=== PATIENT | female | born 1995 | race African-American/Black ===

== ENCOUNTER 2017-04-16 11:57 | Emergency (ER) | payer MEDICAID ==
[2017-04-16 12:05] VITALS: BP 116/74
--- NOTE | 2017-04-16 12:57 | ER Document Report ---
ED General - General Chief Complaint: Vaginal Bleeding Stated Complaint: VAGINAL BLEEDING,ABDOMINAL PAIN Time Seen by Provider: 04/16/17 12:55 Mode of Arrival: Ambulatory Information source: Patient Notes: 21-year-old female who used to be on control presents with complaints of intermittent vaginal bleeding 3 periods i nthe past month . pt denies any fevers or chills nausea or vomtiing. sHe notes intermittent crampy TRAVEL OUTSIDE OF THE [place] IN LAST 30 DAYS: No - HPI Onset: Other Onset/Duration: Intermittent Quality of pain: Cramping Severity: Mild Pain Level: 1 Associated symptoms: Other Exacerbated by: Denies Relieved by: Denies Similar symptoms previously: No Recently seen / treated by doctor: No - Related Data Allergies/Adverse Reactions: No Known Allergies Allergy (Verified 04/16/17 12:02) Past Medical History - Social History Smoking Status: Never Smoker Cigarette use (# per day): No Chew tobacco use (# tins/day): No Smoking Education Provided: No Frequency of alcohol use: None Drug Abuse: None Family History: Reviewed & Not Pertinent Patient has suicidal ideation: No Patient has homicidal ideation: No Renal/ Medical History: Denies: Hx Peritoneal Dialysis Surgical Hx: Negative Review of Systems - Review of Systems Notes: REVIEW OF SYSTEMS: CONSTITUTIONAL : Denies fever, chills, or sweats. Denies recent illness. EENT: Denies eye, ear, throat, or mouth pain or symptoms. Denies nasal or sinus congestion or discharge. Denies throat, tongue, or mouth swelling or difficulty swallowing. CARDIOVASCULAR: Denies chest pain. Denies palpitations or racing or irregular heart beat. Denies ankle edema. RESPIRATORY: Denies cough, cold, or chest congestion. Denies shortness of breath, difficulty breathing, or wheezing. GASTROINTESTINAL: Denies abdominal pain or distention. Denies nausea, vomiting , or diarrhea. Denies blood in vomitus, stools, or per rectum. Denies black, tarry stools. Denies constipation. GENITOURINARY: Denies difficulty urinating, painful urination, burning, frequency, blood in urine, or discharge. FEMALE GENITOURINARY: Admits to vaginal bleeding cramping MUSCULOSKELETAL: Denies back or neck pain or stiffness. Denies joint pain or swelling. SKIN: Denies rash, lesions or sores. HEMATOLOGIC : Denies easy bruising or bleeding. LYMPHATIC: Denies swollen, enlarged glands. NEUROLOGICAL: Denies confusion or altered mental status. Denies passing out or loss of consciousness. Denies dizziness or lightheadedness. Denies headache. Denies weakness or paralysis or loss of use of either side. Denies problems with gait or speech. Denies sensory loss, numbness, or tingling. Denies seizures. PSYCHIATRIC: Denies anxiety or stress. Denies depression, suicidal ideation, or homicidal ideation. ALL OTHER SYSTEMS REVIEWED AND NEGATIVE. Dictation was performed using [employer] voice recognition software PHYSICAL EXAMINATION: GENERAL: Well-appearing, well-nourished and in no acute distress. HEAD: Atraumatic, normocephalic. EYES: Pupils equal round and reactive to light, extraocular movements intact, conjunctiva are normal. ENT: Nares patent, oropharynx clear without exudates. Moist mucous membranes. NECK: Normal range of motion, supple without lymphadenopathy LUNGS: Breath sounds clear to auscultation bilaterally and equal. No wheezes rales or rhonchi. HEART: Regular rate and rhythm without murmurs ABDOMEN: Soft, nontender, nondistended abdomen. No guarding, no rebound. No masses appreciated. Female : deferred Musculoskeletal: Normal range of motion, no pitting or edema. No cyanosis. NEUROLOGICAL: Cranial nerves grossly intact. Normal speech, normal gait. Normal sensory, motor exams PSYCH: Normal mood, normal affect. SKIN: Warm, Dry, normal turgor, no rashes or lesions noted. Physical Exam - Vital signs Vitals: Temp Pulse Resp BP Pulse Ox 98.0 F 102 H 16 116/74 89 L 04/16/17 12:03 04/16/17 12:03 04/16/17 12:03 04/16/17 12:03 04/16/17 12:03 Course - Re-evaluation Re-evalutation: 04/16/17 13:06 Lab work is pending, patient has probable irregular menses secondary to hormonal imbalance. I have offered control pills, patient is willing to try this, risks and benefits have been explained to her 04/16/17 15:02 Patient wishes to have an injection of control, I will therefore give her follow-up with [facility]. Otherwise lab work looks normal no acute distress will DC at this time Patient is very happy with this plan After performing a Medical Screening Examination, I estimate there is LOW risk for ACUTE APPENDICITIS, BOWEL OBSTRUCTION, ACUTE CHOLECYSTITIS, PERFORATED DIVERTICULITIS, INCARCERATED HERNIA, PANCREATITIS, PELVIC INFLAMMATORY DISEASE, PERFORATED ULCER, ECTOPIC , or TUBO-OVARIAN ABSCESS, thus I consider the discharge disposition reasonable. Also, there is no evidence or peritonitis , sepsis, or toxicity. I have reevaluated this patient multiple times and no significant life threatening changes are noted. The patient and I have discussed the diagnosis and risks, and we agree with discharging home with close follow-up with the understanding that symptoms and presentations can change. We also discussed returning to the Emergency Department immediately if new or worsening symptoms occur. We have discussed the symptoms which are most concerning (e.g., bloody stool, fever, changing or worsening pain, vomiting) that necessitate immediate return. - Vital Signs Vital signs: Temp Pulse Resp BP Pulse Ox 98.0 F 102 H 18 116/74 97 04/16/17 12:03 04/16/17 12:03 04/16/17 12:59 04/16/17 12:03 04/16/17 12:59 - Laboratory Result Diagrams: 04/16/17 13:30 04/16/17 13:30 Discharge - Discharge Clinical Impression: Vaginal bleeding Condition: Stable Disposition: HOME, SELF-CARE Instructions: Vaginal Bleeding ([facility]) Referrals: [facility] [Provider Group] - Follow up tomorrow
[2017-04-16 13:45] LABS: ABSOLUTE EOSINOPHILS # (AUTO) 0.1 10^3/uL (0.0-0.6); ABSOLUTE LYMPHOCYTES (AUTO) 1.9 10^3/uL (0.5-4.7); ABSOLUTE MONOCYTES (AUTO) 0.3 10^3/uL (0.1-1.4); BASOPHILS % (AUTO) 0.2 % (0-2); EOSINOPHILS % (AUTO) 1.3 % (0-6); HEMATOCRIT 40.4 % (36.0-47.0); HGB HCT DIFFERENCE -1.4; LYMPHOCYTES % (AUTO) 44.5 % (13-45); MEAN CORPUSCULAR HEMOGLOBIN 28.7 pg (27.0-33.4); MEAN CORPUSCULAR HGB CONC 32.1 g/dL (32.0-36.0); MEAN CORPUSCULAR VOLUME 89 fl (80-97); MONOCYTES % (AUTO) 7.5 % (3-13); RED BLOOD COUNT 4.53 10^6/uL (3.72-5.28); RED CELL DISTRIBUTION WIDTH 12.9 % (11.5-14.0); SEGMENTED NEUTROPHILS % (AUTO) 46.5 % (42-78); WHITE BLOOD COUNT 4.3 10^3/uL (4.0-10.5)
[2017-04-16 14:11] LABS: ALANINE AMINOTRANSFERASE 25 U/L (9-52); ALBUMIN 4.3 g/dL (3.5-5.0); ALKALINE PHOSPHATASE 53 U/L (38-126); ANION GAP 13 (5-19); ASPARTATE AMINO TRANSFERASE 29 U/L (14-36); BILIRUBIN,DIRECT 0.2 mg/dL (0.0-0.4); BLOOD UREA NITROGEN 12 mg/dL (7-20); CALCIUM 9.5 mg/dL (8.4-10.2); CARBON DIOXIDE 26 mmol/L (22-30); CHLORIDE 104 mmol/L (98-107); GLUCOSE 80 mg/dL (75-110); POTASSIUM 4.1 mmol/L (3.6-5.0); SODIUM 142.8 mmol/L (137-145); TOTAL PROTEIN 7.6 g/dL (6.3-8.2)
== END 2017-04-16 15:05 | disposition home or self-care (01) ==
LOC: ER 11:57
DX: N93.8 Other specified abnormal uterine and vaginal bleeding (principal); R10.9 Unspecified abdominal pain
CPT/HCPCS: 36415; 80053; 84702; 85025; 99284

== ENCOUNTER 2019-08-09 14:12 | Outpatient (CLI) | payer OTHER, MEDICAID ==
[2019-08-09 15:27] LABS: APPEARANCE,URINE CLOUDY; BILIRUBIN,URINE NEGATIVE (NEGATIVE); CALCIUM OXALATE CRYSTALS,URINE FEW /HPF; COLOR,URINE YELLOW; GLUCOSE, URINE NEGATIVE (NEGATIVE); KETONES,URINE NEGATIVE (NEGATIVE); LEUKOCYTE ESTERASE,URINE SMALL (NEGATIVE); NITRITE,URINE NEGATIVE (NEGATIVE); PROTEIN,URINE NEGATIVE (NEGATIVE); URINE SPECIFIC GRAVITY 1.019
[2019-08-09 15:42] LABS: URINE AMPHETAMINES SCREEN NEGATIVE; URINE BARBITURATES SCREEN NEGATIVE; URINE BENZODIAZEPINES SCREEN NEGATIVE; URINE COCAINE SCREEN NEGATIVE; URINE METHADONE SCREEN NEGATIVE; URINE PHENCYCLIDINE SCREEN NEGATIVE
[2019-08-09 15:53] LABS: URINE MARIJUANA (THC) SCREEN UNCONFIRMED POSITIVE
== END 2019-08-09 15:46 | disposition home or self-care (01) ==
LOC: LC 14:12
PROVIDERS: ATTEND Obstetrics & Gynecology
PROC: 4A1HXCZ Monitoring of Products of Conception, Cardiac Rate, External Approach (ICD-10-PCS; principal; 2019-08-09)
DX: O26.892 Other specified pregnancy related conditions, second trimester (principal); R10.9 Unspecified abdominal pain; Z3A.22 22 weeks gestation of pregnancy
CPT/HCPCS: 81001; 80307; 59899; G0480 ×2; 80349

== ENCOUNTER 2019-12-21 06:12 | Inpatient (IN) | payer MEDICAID ==
[2019-12-21] MEDS ORDERED: MISOPROSTOL 0.2 MG TABLET ONE (06:16)
[2019-12-21] MEDS ORDERED: LIDOCAINE 1% INJ-PF (10 MG/ML) 30 ML SDV ONE (06:16)
[2019-12-21] MEDS ORDERED: OXYTOCIN 10 UNIT/ML VIAL ONE (06:16)
[2019-12-21] MEDS ORDERED: OXYTOCIN/NORMAL SALINE 20 UNIT/1,000 ML RTUINJ ONE (06:16)
[2019-12-21] MEDS ORDERED: RINGERS SOLUTION,LACTATED 300 ML IV ONE (06:29)
[2019-12-21] MEDS ORDERED: RINGERS SOLUTION,LACTATED 1,000 ML IV PRN (06:29)
[2019-12-21] MEDS ORDERED: OXYTOCIN/NORMAL SALINE 20 UNIT/1,000 ML RTUINJ IV PRN ×2 (06:29→18:03)
[2019-12-21 06:53] LABS: APPEARANCE,URINE SLIGHTLY-CLOUDY; BILIRUBIN,URINE NEGATIVE (NEGATIVE); COLOR,URINE YELLOW; GLUCOSE, URINE NEGATIVE (NEGATIVE); KETONES,URINE NEGATIVE (NEGATIVE); LEUKOCYTE ESTERASE,URINE TRACE (NEGATIVE); NITRITE,URINE NEGATIVE (NEGATIVE); PROTEIN,URINE NEGATIVE (NEGATIVE); UROBILINOGEN,URINE NEGATIVE mg/dL (<2.0)
[2019-12-21 07:11] LABS: URINE AMPHETAMINES SCREEN NEGATIVE; URINE BARBITURATES SCREEN NEGATIVE; URINE BENZODIAZEPINES SCREEN NEGATIVE; URINE COCAINE SCREEN NEGATIVE; URINE METHADONE SCREEN NEGATIVE; URINE PHENCYCLIDINE SCREEN NEGATIVE
[2019-12-21 07:13] LABS: URINE MARIJUANA (THC) SCREEN UNCONFIRMED POSITIVE
[2019-12-21 07:44] LABS: ABSOLUTE EOSINOPHILS # (AUTO) 0.1 10^3/uL (0.0-0.6); ABSOLUTE MONOCYTES (AUTO) 0.7 10^3/uL (0.1-1.4); ABSOLUTE NEUT (AUTO) 4.1 10^3/uL (1.7-8.2); BASOPHILS % (AUTO) 0.3 % (0-2); EOSINOPHILS % (AUTO) 0.9 % (0-6); HEMATOCRIT 30.1 % (36.0-47.0); HEMOGLOBIN 10.4 g/dL (12.0-15.5); LYMPHOCYTES % (AUTO) 29.6 % (13-45); MEAN CORPUSCULAR HEMOGLOBIN 31.6 pg (27.0-33.4); MEAN CORPUSCULAR HGB CONC 34.7 g/dL (32.0-36.0); MEAN CORPUSCULAR VOLUME 91 fl (80-97); MONOCYTES % (AUTO) 10.6 % (3-13); PLATELET COUNT 270 10^3/uL (150-450); SEGMENTED NEUTROPHILS % (AUTO) 58.6 % (42-78); TOTAL CELLS COUNTED % (AUTO) 100 %; WHITE BLOOD COUNT 6.9 10^3/uL (4.0-10.5)
--- NOTE | 2019-12-21 08:46 | Admission Physical ---
Datetime Report Generated by CPN: 12/21/2019 08:45 CURRENT ADMISSION Chief Complaint: Scheduled Induction of Labor Indication for Induction: Post Dates Admit Impression : Term, Intrauterine ; No Active Labor Admit Plan: Admit to Unit; Initiate Labor Induction Protocol ALLERGIES Medication Allergies: No Medication Allergies: No Known Allergies (12/21/2019) Latex: No Latex Allergies OBSTETRICAL HISTORY EDC: 12/14/2019 00:00 : 3 Para: 2 Term: 2 : 0 SAB: 0 IAB: 0 Ectopic: 0 Livin Cesareans: 0 VBACs: 0 Multiple Births: 0 Gestational Diabetes: No Rh Sensitization: No Incompetent Cervix: No PATI: No Infertility: No ART Treatment: No Uterine Anomaly: No IUGR: No Hx Previous C/S: No Macrosomia: No Hx Loss/Stillborn: No PIH: No Hx : No Placenta Previa/Abruption: No Depression/PP Depression: No PTL/PROM: No Post Hemorrhage: No Current Procedures: Ultrasound Obstetrical History Comments: G1- Girl 40 wks G2- Girl 40 wks G3-Current SEE RECORDS Alcohol: No Marijuana : No Cocaine: No Other Illicit Drugs: No Cigarettes: Former Smoker. [id number] MEDICAL HISTORY Diabetes: No Blood Transfusion: No Pulmonary Disease (Asthma, TB): No Breast Disease: No Hypertension: No Manager Global Surgery: No Heart Disease: No Hosp/Surgery: Yes Autoimmune Disorder: No Anesthetic Complications: No Kidney Disease: No Abnormal Pap Smear: Yes Neuro/Epilepsy: No Psychiatric Disorders: No Other Medical Diseases: No Hepatitis/Liver Disease: No Significant Family History: No Varicosities/Phlebitis: No Trauma/Violence : No Thyroid Dysfunction: No Medical History Comments: Childbirth; Hx Gonorrhea and chlamydia INFECTIOUS HISTORY Gonorrhea: Yes Genital Herpes: No Chlamydia: Yes Tuberculosis: No Syphilis: No Hepatitis: No HIV/AIDS Exposure: No Rash or Viral Illness: No HPV: No PHYSICAL EXAM General: Normal HEENT: Normal Neurologic: Normal Thyroid: Deferred Heart: Normal Lungs: Normal Breast: Deferred Back: Normal Abdomen: Normal Genitourinary Exam: Normal Extremities: Normal DTRs: Deferred Pelvic Type: Adequate Physical Exam Comments: pelvis proen to 8# Vital Signs: Reviewed VAGINAL EXAM Dilatation: 1 Effacement: th Station: -3 Contraction Comments: q2-4 mins MEMBRANES Pooling: Negative Membranes: Intact FETUS A EGA: 41.0 Monitoring: External US FHR- Baseline: 135 Variability: Moderate 6-25bpm Accelerations: 15X15 Decelerations: None Estimated Weight (gm): 3800 Admit Comment: admitted for IOL for 41 weeks IUP. denies medical problems. Pitocin infusing. P:cont pitocin IOL, anticipate . PLANS FOR LABOR AND DELIVERY Labor and Delivery: None Pain Management: Epidural Feeding Preference: Both Benefit of Breast Feed Discussed: Yes Circumcision: N/A INFORMED CONSENT Assignment: Xiomara Santos MD Signature: with User ID: [email or web address] : with User ID: [email or web address]
[2019-12-21] MEDS ORDERED: EPHEDRINE SULFATE INJ 50 MG/1 ML AMPULE ONE (13:31)
[2019-12-21] MEDS ORDERED: BUPIVACAINE HCL 0.25 % INJ/PF (2.5 MG/1 ML) 30 ML VIAL ONE (13:32)
[2019-12-21] MEDS ORDERED: FENTANYL/BUPIVACAINE/NS/PF 300 MCG/150 ML RTUINJ EPI ONE (13:32)
[2019-12-21] MEDS ORDERED: PSEUDOEPHEDRINE HCL 30 MG TABLET PO PRN (18:03)
[2019-12-21] MEDS ORDERED: PROMETHAZINE HCL 25 MG TABLET PO PRN (18:03)
[2019-12-21] MEDS ORDERED: DIPHENHYDRAMINE HCL 25 MG CAPSULE PO PRN (18:03)
[2019-12-21] MEDS ORDERED: PROMETHAZINE HCL INJ 25 MG/1 ML VIAL IV PRN (18:03)
[2019-12-21] MEDS ORDERED: MEASLES,MUMPS&RUBELLA VACC/PF 0.5 ML VIAL SUBCUT PRN (18:03)
[2019-12-21] MEDS ORDERED: BENZOCAINE/MENTHOL AEROSOL SPRAY 56 ML TOP PRN (18:03)
[2019-12-21] MEDS ORDERED: DIPH/PERTUSS(ACELL)/TETANUS VAC/PF 0.5 ML SYR (>=10YO) IM PRN (18:03)
[2019-12-21] MEDS ORDERED: NA PHOS,M-B/NA PHOS,DI-BA (ADULT) 133 ML ENEMA PR PRN (18:03)
[2019-12-21] MEDS ORDERED: ACETAMINOPHEN WITH CODEINE #3 TABLET PO PRN ×2 (18:03)
[2019-12-21] MEDS ORDERED: ZOLPIDEM TARTRATE 5 MG TABLET PO PRN (18:03)
[2019-12-21] MEDS ORDERED: ACETAMINOPHEN 650 MG SUPP.RECT PR PRN (18:03)
[2019-12-21] MEDS ORDERED: PROMETHAZINE HCL 25 MG SUPP.RECT PR PRN (18:03)
[2019-12-21] MEDS ORDERED: DIBUCAINE 1% OINTMENT 28 GM TP PRN (18:03)
[2019-12-21] MEDS ORDERED: MAGNESIUM HYDROXIDE SUSP 30 ML UDCUP PO PRN (18:03)
[2019-12-21] MEDS ORDERED: GLYCERIN/WITCH HAZEL LEAF 1 EACH MED..WIPE TP PRN (18:03)
--- NOTE | 2019-12-21 19:49 | Delivery Summary ---
Del Sum A-C Datetime Report Generated by CPN: 12/21/2019 19:49 DELIVERY PERSONNEL DELIVERY PERSONNEL: [id number] Delivery Doctor:: Xiomara Santos MD Labor and Delivery Nurse:: Melissa Zimmer RNmotorcycle tester Nurse:: Shanice Gomez RN Scratcher/APPLIANCE REPAIRER: Carly Marsh, ST Scratcher/APPLIANCE REPAIRER: Jagruti Franco [place], TRIMMING MACHINE SET UP OPERATOR MATERNAL INFORMATION Delivery Anesthesia: Epidural Medications After Delivery: Pitocin Bolus-Please Comment; Pitocin Drip 20 Units/1000ml NSS Meds After Delivery Comment: Pitocin 20 units/1000ml Estimated Blood Loss (ml): 150 Delivery QBL Comment: QBL unable to be obtained d/t delivery in bed. Maternal Complications: None Provider Comments: Called to patients room as she was complete and +3 with urge to push. when I entered room. She pushed once and delivered over an intact perineum: female infant. Infant vigorously crying. Cord clamping delayed 30 seconds. After cord doubly clamped and cut, infant placed skin to skin with Mother. Both Mother and infant stable. LABOR SUMMARY EDC: 12/14/2019 00:00 No. Babies in Womb: 1 Attempted: No Labor Anesthesia: Epidural LABOR INFORMATION Reason for Induction: Post Dates Onset of Labor: 12/21/2019 13:20 Complete Dilatation: 12/21/2019 17:51 Cervical Ripening Agents: Lieberman Balloon Oxytocin: Induction Group B Beta Strep: negative Antibiotics # of Doses: 0 Antibiotics Time of Last Dose: n/a Name of Antibiotic Given: n/a Steroids Given: None Reason Steroids Not Administered: Not Applicable Other Reason Not Administered: n/a MEMBRANES Membranes Rupture Method: Artificial Rupture of Membranes: 12/21/2019 13:20 Length of Rupture (hr): 4.57 Amniotic Fluid Color: Clear Amniotic Fluid Amount: Moderate Amniotic Fluid Odor: Normal STAGES OF LABOR Stage 1 hr: 4 Stage 1 min: 31 Stage 2 hr: 0 Stage 2 min: 3 Stage 3 hr: 0 Stage 3 min: 4 Total Time in Labor hr: 4 Total Time in Labor min: 38 VAGINAL DELIVERY Episiotomy: None Laceration #1: None Laceration Extension #1: N/A Laceration Repair: Not Applicable Sponge Count Correct: No Sharps Count Correct: N/A CSECTION DELIVERY Primary Indication: N/A Secondary Indication: N/A CSection Incidence: N/A Labor: N/A Elective: N/A CSection Incision: N/A BABY A INFORMATION Infant Delivery Date/Time: 12/21/2019 17:54 Method of Delivery: Vaginal Nurse Controlled Delivery: No Born in Route : No : N/A Forceps: N/A Vacuum Extraction: N/A Shoulder Dystocia : No PRESENTATION/POSITION BABY A Presentation: Cephalic Cephalic Presentation: Vertex Vertex Position: Left Occipital Anterior Breech Presentation: N/A PLACENTA INFORMATION BABY A Placenta Delivery Time : 12/21/2019 17:58 Placenta Method of Delivery: Spontaneous Placenta Status: Delivered SCORES BABY A Heart Rate 1 min: >100 bpm Resp Effort 1 min: Good Cry Reflex Irritability 1 min: Cough or Sneeze or Pulls Away Muscle Tone 1 min: Active Motion Color 1 min: Body [place], Extremities Blue Resuscitation Effort 1 min: Tactile Stimulation SCORE 1 MIN: 9 Heart Rate 5 min: >100 bpm Resp Effort 5 min: Good Cry Reflex Irritability 5 min: Cough or Sneeze or Pulls Away Muscle Tone 5 min: Active Motion Color 5 min: Body [place], Extremities Blue Resuscitation Effort 5 min: Tactile Stimulation SCORE 5 MIN: 9 INFANT INFORMATION BABY A Gestational Age at Delivery: 41.0 Gestational Status: Late Term- 41- 41.6 Weeks Infant Outcome : Liveborn Infant Condition : Stable Sex: Female IDENTIFICATION BABY A Infant Verification Date/Time: 12/21/2019 18:30 ID Band Number: [id number] Mother's Name Verified: Yes Infant RN Verifying Infant: C. Bactat, RN WEIGHT/LENGTH BABY A Infant Birthweight (gm): 3358 Weight (lb): 7 Weight (oz): 6 Infant Length (in): 19.75 Infant Length (cm): 50.17 CORD INFORMATION BABY A No. Cord Vessels: 3 Nuchal Cord : N/A Cord Blood Taken: Yes-For Storage (Mom's Blood type +) Suction: Mouth ASSESSMENT BABY A Complications: None Physical Findings at Delivery: Within Normal Limits Infant Respirations: Appears Normal Skin to Skin: Yes Skin to Skin Time (min): 40 Consulting Solution Manager/ALS Called : No Care By: Shyla Gomez, RN Transferred To: Remains with Mother BABY B INFORMATION : N/A SIGNATURES Signature: with User ID: [email or web address] : with User ID: [email or web address] : I was personally available for consultation and serving as supervising physician for the MLP.
[2019-12-21] MEDS ORDERED: IBUPROFEN 800 MG TABLET ONE (20:25)
[2019-12-21] MEDS: IBUPROFEN 800 MG TABLET PO SCH ×2 (20:27→22:36)
[2019-12-21] MEDS: FAMOTIDINE 20 MG TABLET PO SCH (21:47)
[2019-12-22] MEDS: IBUPROFEN 800 MG TABLET PO SCH ×3 (05:33→22:51)
[2019-12-22 07:56] LABS: HEMATOCRIT 29.3 % (36.0-47.0); HEMOGLOBIN 10.1 g/dL (12.0-15.5); MEAN CORPUSCULAR HEMOGLOBIN 31.6 pg (27.0-33.4); MEAN CORPUSCULAR HGB CONC 34.6 g/dL (32.0-36.0); MEAN CORPUSCULAR VOLUME 91 fl (80-97); PLATELET COUNT 257 10^3/uL (150-450); RED CELL DISTRIBUTION WIDTH 14.3 % (11.5-14.0)
[2019-12-22 07:59] LABS: WHITE BLOOD COUNT 16.1 10^3/uL (4.0-10.5)
--- NOTE | 2019-12-22 09:23 | PDOC PROGRESS REPORT ---
Subjective-OB Progress Note for:: 12/22/19 Subjective: Doing well, no c/o, voiding, scant bleeding, breast and bottle Physical Exam (OB) Vital Signs: Temp Pulse Resp BP Pulse Ox 98.5 F 71 16 102/54 L 100 12/22/19 07:51 12/22/19 07:51 12/22/19 07:51 12/22/19 07:51 12/22/19 07:51 Intake & Output 12/21/19 12/22/19 12/23/19 06:59 06:59 06:59 Intake Total 120 500 Balance 120 500 Weight 180.5 kg 67.8 kg - PIH/Pre-Eclampsia Clonus: Negative Headache: Absent Epigastric Pain: No Visual Changes: No - Lochia Lochia Amount: Scant < 10 ml Lochia Color: Rubra/Red - Abdomen Description: Tender, Soft Hernia Present: No Fundal Description: Firm, Midline Describe if Not Midline: Fundal massage x1-2 minutes and fundus now firm Fundal Height: u/u - u/2 Objective-Diagnostic Laboratory: 12/22/19 07:31 12/22/19 07:31 WBC 16.1 H D RBC 3.20 L Hgb 10.1 L Hct 29.3 L MCV 91 MCH 31.6 MCHC 34.6 RDW 14.3 H Plt Count 257 Assessment and Plan(PN) - Assessment and Plan (1) Vaginal delivery Is this a current diagnosis for this admission?: Yes - Time Spent with Patient Time with patient: Less than 15 minutes Medications reviewed and adjusted accordingly: Yes - Disposition Anticipated Discharge: Home Within: within 24 hours
[2019-12-22] MEDS: SENNOSIDES/DOCUSATE 8.6-50 MG 1 EACH TABLET PO SCH (09:47)
[2019-12-22] MEDS: DOCUSATE SODIUM 100 MG CAPSULE PO SCH ×2 (09:47→17:55)
[2019-12-22] MEDS: FERROUS SULFATE 325 MG TABLET PO SCH ×2 (09:47→17:55)
[2019-12-22] MEDS: FAMOTIDINE 20 MG TABLET PO SCH ×2 (09:47→22:59)
[2019-12-22] MEDS: PRENATAL VITAMIN W DHA CAPSULE PO SCH (09:47)
[2019-12-23] MEDS: IBUPROFEN 800 MG TABLET PO SCH ×2 (05:34→14:21)
[2019-12-23 08:15] VITALS: BP 110/74
[2019-12-23] MEDS: FAMOTIDINE 20 MG TABLET PO SCH (09:28)
[2019-12-23] MEDS: DOCUSATE SODIUM 100 MG CAPSULE PO SCH (09:28)
[2019-12-23] MEDS: SENNOSIDES/DOCUSATE 8.6-50 MG 1 EACH TABLET PO SCH (09:28)
[2019-12-23] MEDS: FERROUS SULFATE 325 MG TABLET PO SCH (09:29)
[2019-12-23] MEDS: PRENATAL VITAMIN W DHA CAPSULE PO SCH (09:29)
--- NOTE | 2019-12-23 11:22 | PDOC DISCHARGE SUMMARY ---
Impression - Admit/DC Date/PCP Admission Date/Primary Care Provider: 12/21/19 06:12 KEYUR CAMPBELL MD Discharge Date: 12/23/19 - PP Day #2, doing well, no complaints, B+ Rubella Immune, - Discharge Diagnosis (1) Normal course Is this a current diagnosis for this admission?: Yes (2) Tetrahydrocannabinol (THC) dependence Is this a current diagnosis for this admission?: Yes (3) Vaginal delivery Is this a current diagnosis for this admission?: Yes - Additional Information Resuscitation Status: Full Code Discharge Diet: As Tolerated, Regular Discharge Activity: Activity As Tolerated, No Lifting Over 10 Pounds, Pelvic Rest Referrals: [facility] [Provider Group] Prescriptions: Ibuprofen [Motrin 800 mg Tablet] 800 mg PO Q8 PRN #60 tablet PRN Reason: Pain Scale Of 3 Home Medications: Vit/Iron Fum/Folic AC [ Tablet] 1 tab PO DAILY 03/04/16 Ibuprofen [Motrin 800 mg Tablet] 800 mg PO Q8 PRN #60 tablet 12/23/19 HPI Reason(s) for Admission: Onset of Labor Procedures: Ultrasound Intrapartum Procedure(s): Spontaneous Vaginal Delivery Results Laboratory Results: WBC 16.1 10^3/uL (4.0-10.5) H D 12/22/19 07:31 RBC 3.20 10^6/uL (3.72-5.28) L 12/22/19 07:31 Hgb 10.1 g/dL (12.0-15.5) L 12/22/19 07:31 Hct 29.3 % (36.0-47.0) L 12/22/19 07:31 MCV 91 fl (80-97) 12/22/19 07:31 MCH 31.6 pg (27.0-33.4) 12/22/19 07:31 MCHC 34.6 g/dL (32.0-36.0) 12/22/19 07:31 RDW 14.3 % (11.5-14.0) H 12/22/19 07:31 Plt Count 257 10^3/uL (150-450) 12/22/19 07:31 Lymph % (Auto) 29.6 % (13-45) 12/21/19 07:10 Luna % (Auto) 10.6 % (3-13) 12/21/19 07:10 Eos % (Auto) 0.9 % (0-6) 12/21/19 07:10 Baso % (Auto) 0.3 % (0-2) 12/21/19 07:10 Absolute Neuts (auto) 4.1 10^3/uL (1.7-8.2) 12/21/19 07:10 Absolute Lymphs (auto) 2.0 10^3/uL (0.5-4.7) 12/21/19 07:10 Absolute Monos (auto) 0.7 10^3/uL (0.1-1.4) 12/21/19 07:10 Absolute Eos (auto) 0.1 10^3/uL (0.0-0.6) 12/21/19 07:10 Absolute Basos (auto) 0.0 10^3/uL (0.0-0.2) 12/21/19 07:10 Seg Neutrophils % 58.6 % (42-78) 12/21/19 07:10 Urine Color YELLOW 12/21/19 06:25 Urine Appearance SLIGHTLY-CLOUDY 12/21/19 06:25 Urine pH 7.0 (5.0-9.0) 12/21/19 06:25 Ur Specific [place] 1.010 12/21/19 06:25 Urine Protein NEGATIVE mg/dL (NEGATIVE) 12/21/19 06:25 Urine Glucose (UA) NEGATIVE mg/dL (NEGATIVE) 12/21/19 06:25 Urine Ketones NEGATIVE mg/dL (NEGATIVE) 12/21/19 06:25 Urine Blood NEGATIVE (NEGATIVE) 12/21/19 06:25 Urine Nitrite NEGATIVE (NEGATIVE) 12/21/19 06:25 Urine Bilirubin NEGATIVE (NEGATIVE) 12/21/19 06:25 Urine Urobilinogen NEGATIVE mg/dL (<2.0) 12/21/19 06:25 Ur Leukocyte Esterase TRACE (NEGATIVE) H 12/21/19 06:25 Urine Ascorbic Acid NEGATIVE (NEGATIVE) 12/21/19 06:25 Urine Opiates Screen NEGATIVE 12/21/19 06:25 Urine Methadone Screen NEGATIVE 12/21/19 06:25 Ur Barbiturates Screen NEGATIVE 12/21/19 06:25 Ur Phencyclidine Scrn NEGATIVE 12/21/19 06:25 Ur Amphetamines Screen NEGATIVE 12/21/19 06:25 U Benzodiazepines Scrn NEGATIVE 12/21/19 06:25 Urine Cocaine Screen NEGATIVE 12/21/19 06:25 U Marijuana (THC) Screen UNCONFIRMED POSITIVE 12/21/19 06:25 RPR NONREACTIVE (NONREACTIVE) 12/21/19 07:10 Blood Type B POSITIVE 12/21/19 07:10 Antibody Screen NEGATIVE 12/21/19 07:10 Plan Plan of Treatment: d/c to home. f/up with [facility] in 4 wks for PP check
== END 2019-12-23 14:30 | disposition home or self-care (01) | DRG 806 ==
LOC: LR 06:12 → 2S 20:37
PROVIDERS: ADMIT Obstetrics & Gynecology; ATTEND Obstetrics & Gynecology
PROC: 10E0XZZ Delivery of Products of Conception, External Approach (ICD-10-PCS; principal; 2019-12-22)
PROC: 3E033VJ Introduction of Other Hormone into Peripheral Vein, Percutaneous Approach (ICD-10-PCS; 2019-12-22)
PROC: 10907ZC Drainage of Amniotic Fluid, Therapeutic from Products of Conception, Via Natural or Artificial Opening (ICD-10-PCS; 2019-12-22)
DX: O48.0 Post-term pregnancy (principal); O99.324 Drug use complicating childbirth; Z37.0 Single live birth; F12.20 Cannabis dependence, uncomplicated; Z87.891 Personal history of nicotine dependence; Z3A.41 41 weeks gestation of pregnancy
CPT/HCPCS: 36415; 80307; 81005; 85025; 85027; 86592; 86850; 86900; 86901; J2590; J3010; J3490